=== PATIENT | male | born 1945 | race Caucasian/White ===

== ENCOUNTER 2021-05-21 10:31 | Inpatient (IN) | payer OTHER ==
[~2021-05-21] VITALS: Ht 175.3 cm; Wt 110.0 kg
[2021-05-21] MEDS ORDERED: ASPI81CH PO (10:54)
[2021-05-21] MEDS ORDERED: DULO60 PO (10:54)
[2021-05-21] MEDS ORDERED: CENTRUM SILVER1 EAC2 PO (10:55)
[2021-05-21] MEDS ORDERED: FISH OIL 1,0001 EAC8 PO (10:55)
[2021-05-21] MEDS ORDERED: METO25ER PO (10:55)
[2021-05-21] MEDS ORDERED: MYCOPHENOLATE500 MG PO (10:56)
[2021-05-21] MEDS ORDERED: Pyridostigmine60 MG PO (10:57)
[2021-05-21] MEDS ORDERED: PRAV20 PO (10:57)
[2021-05-21 10:58] LABS: BASOPHILS ABSOLUTE AUTO 0.02 K/mm3 (0.00-0.23); BASOPHILS PERCENT AUTO 0 % (0-2); EOSINOPHILS PERCENT AUTO 0 % (0-6); Hematocrit 45.7 % (37.0-53.0); Hemoglobin 15.6 g/dL (13.5-17.5); IMMATURE GRAN ABSOLUTE AUTO 0.13 K/mm3 (0.00-0.10); IMMATURE GRAN PERCENT AUTO 1 % (0-1); LYMPHOCYTES ABSOLUTE AUTO 1.48 K/mm3 (0.84-5.20); LYMPHOCYTES PERCENT AUTO 7 % (21-46); MONOCYTES ABSOLUTE AUTO 2.39 K/mm3 (0.16-1.47); MONOCYTES PERCENT AUTO 12 % (4-13); Mean Corpuscular HGB 31.6 pg (26.0-34.0); Mean Corpuscular HGB Conc 34.1 g/dL (31.5-36.5); Mean Corpuscular Volume 93 fL (80-100); Mean Platelet Volume 11.2 fL (9.1-12.4); NEUTROPHILS ABSOLUTE AUTO 16.01 K/mm3 (1.96-9.15); NEUTROPHILS PERCENT AUTO 80 % (41-73); Platelet Count 232 K/mm3 (150-400); RDW Coefficient Variation 13.6 % (11.7-14.2); RDW Standard Deviation 46.4 fL (35.1-46.3); Red Blood Cell Count 4.93 M/mm3 (4.30-5.90); White Blood Cell Count 20.03 K/mm3 (4.00-11.30)
[2021-05-21] MEDS ORDERED: SERT100 PO ×2 (10:58)
[2021-05-21] MEDS ORDERED: TAMS.4ER PO (10:58)
[2021-05-21 11:10] LABS: International Normalized Ratio 1.11; Prothrombin Time Results 11.9 Sec (9.7-11.5)
[2021-05-21 11:10] LABS: Calcium, Ionized (POC) 1.09 mmol/L (1.10-1.46); Chloride (POC) 103 mmol/L (98-108); Creatinine (POC) 1.1 mg/dL (0.8-1.3); Glucose (ISTAT POC) 149 mg/dL (70-99); Hemoglobin (POC) 15.6 g/dL (13.5-17.5); Potassium (POC) 4.3 mmol/L (3.5-5.5); Sodium (POC) 135 mmol/L (135-148); Total CO2 (POC) 21 mmol/L (21-32)
[2021-05-21 11:30] LABS: Alanine Aminotransfer (ALT/SGP 48 U/L (12-78); Albumin, Blood 3.4 g/dL (3.4-5.0); Albumin/Globulin Ratio 0.9 (0.8-1.8); Alk Phos 65 U/L (50-136); Anion Gap 9 mmol/L (6-16); Aspartate Aminotrans (AST/SGOT 29 U/L (12-37); Bilirubin, Total 2.2 mg/dL (0.1-1.0); Blood Urea Nitrogen 32 mg/dL (8-24); Bun/Creatinine Ratio 34.2 (12.0-20.0); CO2, Blood 21 mmol/L (21-32); Calcium, Blood 8.6 mg/dL (8.5-10.1); Chloride, Blood 105 mmol/L (98-108); Creatinine, Blood 0.94 mg/dL (0.60-1.20); Globulin, Blood 3.6 g/dL (2.2-4.0); Glomerular Filtration Rate >60 (60-); Glucose, Blood 154 mg/dL (70-99); Magnesium, Blood 2.1 mg/dL (1.6-2.4); Potassium, Blood 3.8 mmol/L (3.5-5.5); Sodium, Blood 135 mmol/L (136-145)
[2021-05-21 11:35] LABS: Troponin I 0.549 ng/mL (0.000-0.040)
[2021-05-21 12:42] LABS: SARS-Cov-2 (COVID-19) PCR, MMC NEGATIVE (NEGATIVE)
--- NOTE | 2021-05-21 19:32 | NUR ---
RECEIVED PT FROM ED ALERT AND ORIENTED, MAKING NO C/O SOB OR CHEST PAIN, SATS 92 AND ABOVE. MED REQ COMPLETE. REPORT GIVEN TO NIGHT NURSE.
--- NOTE | 2021-05-22 06:55 | NUR ---
SHIFT SUMMARY; ZULY DID WELL LAST NIGHT. TELE REPORTED SINUS WITH PROLONGED P WAVES. NO EVENTS. HE DENIED ANY PAIN OR DISCOMFORT. HEPRIN INCREASED ONCE, AND BOLUS WAS GIVEN. GOT HIS NIGHT MEDS ORDERED AND ADMINISTERED. TROPONIN WAS 0.549 YESTERDAY WITH NO REPEAT. BNP WAS 665 ALSO NO REPEAT. HOPES TO GO HOME TODAY. CALL LIGHT IN REACH.
[2021-05-22 08:31] LABS: Hematocrit 40.2 % (37.0-53.0); Hemoglobin 13.4 g/dL (13.5-17.5); Mean Corpuscular HGB 31.2 pg (26.0-34.0); Mean Corpuscular HGB Conc 33.3 g/dL (31.5-36.5); Mean Corpuscular Volume 94 fL (80-100); Mean Platelet Volume 10.7 fL (9.1-12.4); Platelet Count 184 K/mm3 (150-400); RDW Coefficient Variation 13.4 % (11.7-14.2); RDW Standard Deviation 45.6 fL (35.1-46.3); White Blood Cell Count 11.72 K/mm3 (4.00-11.30)
[2021-05-22 08:59] LABS: Alanine Aminotransfer (ALT/SGP 40 U/L (12-78); Albumin, Blood 2.8 g/dL (3.4-5.0); Albumin/Globulin Ratio 0.9 (0.8-1.8); Alk Phos 56 U/L (50-136); Anion Gap 9 mmol/L (6-16); Aspartate Aminotrans (AST/SGOT 27 U/L (12-37); Bilirubin, Total 2.1 mg/dL (0.1-1.0); Blood Urea Nitrogen 22 mg/dL (8-24); Bun/Creatinine Ratio 29.3 (12.0-20.0); CHOL/HDL RATIO 3.1; CO2, Blood 23 mmol/L (21-32); Chloride, Blood 109 mmol/L (98-108); Cholesterol 126 mg/dL (50-200); Creatinine, Blood 0.75 mg/dL (0.60-1.20); Globulin, Blood 3.2 g/dL (2.2-4.0); Glomerular Filtration Rate >60 (60-); Glucose, Blood 81 mg/dL (70-99); HDL Cholesterol 41 mg/dL (>39); LDL/HDL RATIO 1.6; Low Density Lipoprotein Chol 65 mg/dL (0-110); Potassium, Blood 3.3 mmol/L (3.5-5.5); Sodium, Blood 141 mmol/L (136-145); Triglycerides 101 mg/dL (30-160); Very Low Density Lipoprot Chol 20 mg/dL (6-32)
[2021-05-22 09:03] LABS: Troponin I 0.843 ng/mL (0.000-0.040)
--- NOTE | 2021-05-22 19:23 | NUR ---
SUMM- PT A/O X4. TOLERATING FOOD AND FLUIDS. PLAN FOR ANGIO AM 05/23 0730, NPO AFTER MIDNIGHT. VSS, DENIES CHEST PAIN. SR 90'S. HEPARIN GTT. USES CALL LIGHT. SBA IN ROOM. USES URINAL
--- NOTE | 2021-05-23 05:38 | NUR ---
SHIFT SUMMARY: NO ACUTE CHANGES OVER NIGHT. HE HAS DEVELOPED SOME MILD DIARRHEA, AND IS INCONTIENT OF URINE AT TIMES. HEPARIN CONTINUES TO INFUSE WITH NO CHANGES TO HE INFUSION. TELE REPORTS SINUS, NO EVENTS. VS HAVE BEEN STABLE. NPO AFTER MIDNIGHT EXCEPT FOR MEDS AND SIPS OF WATER. PLAN ANGIOGRAM THIS AM. WILL CONTINUE TO MONITOR. CALL LIGHT IN REACH.
--- NOTE | 2021-05-23 09:00 | NUR ---
PT RETURNED TO RECOVERY ROOM IN BED. RIGHT RADIAL TR BAND SITE WITH WRIST BOARD IN PLACE SOFT WITH NO HEMATOMA, NO PULSATILE BLEEDING AND SP02 ON RIGHT MIDDLE FINGER. PT DENIES CHEST PAIN. PT HAS SOME "ACHINESS" IN RIGHT WRIST. CALL LIGHT IN REACH. PT DRINKING PEPSI.
--- NOTE | 2021-05-23 09:40 | NUR ---
PT UPPER LUNG TONES WHEEZES. DR ALTMAN IN ROOM. [facility] SEE NEW ORDERS FOR UPDRAFT TREATMENT. NO CHANGES TO RIGHT RADIAL TR BAND SITE.
--- NOTE | 2021-05-23 09:58 | NUR ---
NO LONGER HEAR WHEEZING IN UPPER LOBES. PT EATING BREAKFAST.
--- NOTE | 2021-05-23 11:01 | NUR ---
15 CC OF AIR REMOVED OVER 15 MIN OUT OF NOW DEFLATED RIGHT RADIAL TR BAND. RIGHT RADIAL SITE SOFT WITH NO HEMATOMA, NO PULSATILE BLEEDING. RADIAL SITE DISCHARGE INSTRUCTIONS REVIEWED AND ALL QUESTIONS ANSWERED.
--- NOTE | 2021-05-23 11:15 | NUR ---
NO CHANGES TO DEFLATED RIGHT TR BAND SITE.
--- NOTE | 2021-05-23 11:28 | NUR ---
NO CHANGES TO DEFLATED RIGHT TR BAND SITE
--- NOTE | 2021-05-23 11:37 | NUR ---
NO CHANGES TO DEFLATED RIGHT TR BAND SITE.
--- NOTE | 2021-05-23 12:00 | NUR ---
RIGHT RADIAL TR BAND REMOVED AND POLYMEM PLACED OVER RIGHT RADIAL SITE WITH RIGHT WRIST BOARD IN PLACE. RIGHT RAIAL SITE SOFT WITH NO HEMATOMA, NO PULSATILE BLEEDING.
[2021-05-23 14:22] LABS: Hematocrit 44.8 % (37.0-53.0); Hemoglobin 15.5 g/dL (13.5-17.5); Mean Corpuscular HGB 31.8 pg (26.0-34.0); Mean Corpuscular HGB Conc 34.6 g/dL (31.5-36.5); Mean Corpuscular Volume 92 fL (80-100); Mean Platelet Volume 10.7 fL (9.1-12.4); Platelet Count 230 K/mm3 (150-400); RDW Coefficient Variation 13.2 % (11.7-14.2); RDW Standard Deviation 43.8 fL (35.1-46.3); Red Blood Cell Count 4.87 M/mm3 (4.30-5.90); White Blood Cell Count 14.02 K/mm3 (4.00-11.30)
[2021-05-23 14:43] LABS: Anion Gap 8 mmol/L (6-16); Blood Urea Nitrogen 17 mg/dL (8-24); CO2, Blood 23 mmol/L (21-32); Calcium, Blood 8.1 mg/dL (8.5-10.1); Chloride, Blood 109 mmol/L (98-108); Creatinine, Blood 0.77 mg/dL (0.60-1.20); Glomerular Filtration Rate >60 (60-); Glucose, Blood 101 mg/dL (70-99); Sodium, Blood 140 mmol/L (136-145)
--- NOTE | 2021-05-23 20:32 | NUR ---
SUMMARY- PT WENT FOR ANGIO THIS AM AND ENDED UP HAVING A STENT PLACED. ENTERED R RADIAL, DRESSING INTACT WITH SPLINT IN PLACE TO REMIND PT TO KEEP FROM MOVING WRIST OF USING MORE THAN MINIMALLY. ISABELA RENE REPORTED THAT PT BECAME SOB AFTER BRILANTA AND THAT HE SHOULDNT BE GIVEN THAT DRUG AGAIN. PT RECEIVED BACK FROM ANGIO AT 1230 AND VSS, PT SLIGHTLY WEAK AND SLEEPY BUT APPROPRIATE. 2 SBA TO CHAIR. PT WANTED TO GO TO BED IMMEDIATELY. PT WAS RESTLESS THE ENTIRE SHIFT, SITTING AT THE EDGE OF BED AND C/O FEELING EDGEY. HAD ALWAYS DENIED CP. FELT LIGHT HEADED AT ONE POINT WHEN SITTING, VSS REMAINED STABLE WITH TEMP OF 101. WILL ELHAM. SET BED ALARM BECAUSE PT BEGAN TO GET UP WITH OUT ASSIST AND WOULDNT WAIT FOR ASSIST. PT USED CALL LIGHT FREQ FOR SMALL REQ OR NOTHING AT ALL. TOWARD END OF SHIFT SETTELING DOWN. STATES HE FEELS TERRIBLE SINCE THE MED GIVEN TO HIM EARLIER. REPORTED TO NOC
[2021-05-24 04:31] LABS: BASOPHILS ABSOLUTE AUTO 0.03 K/mm3 (0.00-0.23); BASOPHILS PERCENT AUTO 0 % (0-2); EOSINOPHILS ABSOLUTE AUTO 0.01 K/mm3 (0.00-0.68); EOSINOPHILS PERCENT AUTO 0 % (0-6); Hematocrit 45.2 % (37.0-53.0); Hemoglobin 15.7 g/dL (13.5-17.5); IMMATURE GRAN ABSOLUTE AUTO 0.11 K/mm3 (0.00-0.10); IMMATURE GRAN PERCENT AUTO 1 % (0-1); LYMPHOCYTES PERCENT AUTO 5 % (21-46); MONOCYTES ABSOLUTE AUTO 2.16 K/mm3 (0.16-1.47); MONOCYTES PERCENT AUTO 12 % (4-13); Mean Corpuscular HGB 31.8 pg (26.0-34.0); Mean Corpuscular HGB Conc 34.7 g/dL (31.5-36.5); Mean Corpuscular Volume 92 fL (80-100); NEUTROPHILS ABSOLUTE AUTO 14.27 K/mm3 (1.96-9.15); NEUTROPHILS PERCENT AUTO 82 % (41-73); RDW Coefficient Variation 13.2 % (11.7-14.2); RDW Standard Deviation 43.3 fL (35.1-46.3); Red Blood Cell Count 4.93 M/mm3 (4.30-5.90); White Blood Cell Count 17.48 K/mm3 (4.00-11.30)
[2021-05-24 04:42] LABS: Mean Platelet Volume 10.9 fL (9.1-12.4); Platelet Count 209 K/mm3 (150-400)
[2021-05-24 05:04] LABS: Alanine Aminotransfer (ALT/SGP 35 U/L (12-78); Albumin, Blood 2.9 g/dL (3.4-5.0); Albumin/Globulin Ratio 0.8 (0.8-1.8); Alk Phos 60 U/L (50-136); Anion Gap 8 mmol/L (6-16); Aspartate Aminotrans (AST/SGOT 27 U/L (12-37); Bilirubin, Total 2.8 mg/dL (0.1-1.0); Blood Urea Nitrogen 13 mg/dL (8-24); Bun/Creatinine Ratio 19.6 (12.0-20.0); CO2, Blood 21 mmol/L (21-32); Calcium, Blood 8.2 mg/dL (8.5-10.1); Chloride, Blood 108 mmol/L (98-108); Creatinine, Blood 0.66 mg/dL (0.60-1.20); Globulin, Blood 3.8 g/dL (2.2-4.0); Glomerular Filtration Rate >60 (60-); Glucose, Blood 105 mg/dL (70-99); Potassium, Blood 3.2 mmol/L (3.5-5.5); Sodium, Blood 137 mmol/L (136-145); Total Protein, Blood 6.7 g/dL (6.4-8.2)
--- NOTE | 2021-05-24 06:23 | NUR ---
ARRIVAL TO PCU PT ARRIVED TO PCU AT 06:10 VIA GURNEY. PT STANDS AND TRANSFERS TO OUR GURNEY WITH MINIMAL ASSIST. PT CONCERNED ABOUT COMING IN TO VISIT. MEDICAL FLOOR RN STS SHE WILL CALL SPOUSE AND UPDATE HER ON HIS LOCATION IN THE HOSPITAL. AFTER SITTING ON EDGE OF BED PT REMAINS RESTLESS, MOVING BETWEEN LAYING ON BED AND SITTING AT THE EDGE. PT DENIES CP OR DIZZINESS. OFFERED FOR PT TO MOVE TO CHAIR TO WHICH HE TRANSFERS WITH MINIMAL ASSIST. PT ASKS SEVERAL TIMES ABOUT CATHETER, INFORMED IT DRAINS URINE WITHOUT EFFORT. LUNG SOUNDS ARE COARSE IN UPPER LOBES, DIMINISHED AND COARSE. MONITOR SHOWS PT IN SINUS RHYTHM WITH HR IN 80S. SBP IN 150S. SPO2 IN MID 80S. APPLIED 3L VIA NC AND SPO2 >96%. RR FLUCTUATES BETWEEN 30S-50S. STRONG RADIAL AND PEDAL PULSES BILATERALLY. BOWEL TONES ACTIVE X4 QUADRANTS. PT REQUESTS TO SIT ON BEDSIDE COMMODE D/T DIARRHEA. SITS ON COMMODE FOR SEVERAL MINUTES WITHOUT BM . ASKS ABOUT "RITCHIE" AND POINTS TO THE FLOOR, TALKS ABOUT "TUNDE WALKER". WHEN ASKED WHO TUNDE WALKER IS, PT STS "I DON'T KNOW". PT BACK TO SITTING IN CHAIR. PT APPEARS MORE CALM AND DROWSY. LOOKING AROUND ROOM AND WATCHING TV.
--- NOTE | 2021-05-24 08:12 | NUR ---
SHIFT SUMMARY: PATIENT HAD A VERY ROUGH NIGHT, STARTING OFF WITH FREQUENT SEVERE PANIC ATTACKS THAT MADE HIM FEEL LIKE HE HAD TO MOVE AND LEAN IN A TRIPOD POSITION. CONTINTINUED TO STATE HE COULD NOT BREATH WHEN HE LAID BACK EVEN IN THE CHAIR. STATES IT FELT LIKE "HIS HEART BEING CRUSHED". CONTINUED TO STATES HE WAS ANXIOUS AND ALL HE WANTED TO DO WAS SLEEP. RESPIRATION WOULD INCREASE TO 40'S AND HIGHER WHEN THE PANIC ATTACKS OCCURED. TRIED RECLEINER, PILLOWS, SITTING IN YOUNG, WALKING, AND FAMILY BED. NOTHING HELPED. MD WAS NOTIFIED ORDER FOR BENADRYL THE REPORT WAS HE HAD A REACTION TO BILENTA TODAY DURING THE RECOVER OF HIS STENT. SINCE THEN HE HAS HAD THESE PANIC ATTACKS. ATTACKS PROGRESSED TO HULLUUCINATIONS, UNSTADFY GAIT, SEVERE WEAKNESS FATIQUED, AND PARNOIA. THOUGHT HIS WAS IN THE HOSPITAL. CONTINUED TO WANT TO LEAVE. MD ORDERED HALDOL EVEN THOUGH HE HAD PROLONGED QT WAVE. THIS MADE THE SITUATION WORSE HE WAS FIGHING THE MEDICATION. CONTINUED TO BE CONCERN RESPIRATIONS WERE HIGH, HE WAS PALE. EKG DONE, IMPROVEMENT FROM LAST ONE. ASKED HOSPITALIZED BRITTANIE TO COME ASSESS. NEW ORDERS OBTAINED. AT THIS POINT AGGITATION AND CONFUSION PERSISTED, WAS UNABLE TO LEAVE THE PATIENTS ALONE. CONTINUED TO REPORT CHEST PRESSURE. CHEST EXRAY SHOWED PULMONARY EDEMA, D-DIMER SUGGEST PE, RESPIRATIONS WERE NOT AVERAGING 40-60. LUNGS WERE VERY CRACKLING. HE WAS GIVEN MELATONIN, ATIVAN TO TRY AND GET HIM TO CALM DOWN. CATHETER WAS PLACED, LASIX GIVEN. ORDER FOR CPAP AND PCU TRANSFER. GAVE REPORT, PATIENT TRANSFERRED. CALLED AND INFORMED OF SITUATION.
--- NOTE | 2021-05-24 09:40 | NUR ---
CARE ASSUMPTION PATIENT ALERT AND ORIENTATED X4. VSS. SPO2 >90% ON NC 3L, RESPIRATIONS FLUCUATES FROM 20-34. MD ALTMAN IN TO SEE PATIENT AT APROX 0735 DUE TO THE EVENTS STATED IN PERVIOUS NOTE. WHILE MD ALTMAN WAS IN THERE HE REMOVEED THE ARM BOARD AND CITE WAS WITHIN NORMAL LIMITS, NO REDDNESS, SWELLING, OR BLEEDING. PATIENT IS NOT HAVING ANY HALLUCINATIONS. PATIENT STARTED TO BECOME ANXIOUS AND STATED HE WANTED TO LEAVE. THIS RN, MARCK, AND FRANKLIN HAD THE PATIENT CALL HIS AND EDUCATED ON HIM WHY IT IS NOT SAFE FOR HIM TO LEAVE SINCE HE HAS FLUID ON HIS LUNGS, RESPIRATIONS ARE NOT NORMAL, AND THE MD WANTS TO HAVE HIM HERE ONE MORE NIGHT TO HELP GET THE FLUID OFF. PATIENT AGREED TO STAY UNTIL TOMORROW MORNING. WAS CALLED WITH AN UPDATE. PATIENT RELAXING IN CHAIR AT BEDSIDE WITH TAB ALARM ON. PATIENT DID NOT WANT TO EAT BREAKFAST. LORENZANA DRAINING WITH GRAVITY, TEACOLOR. CALL LIGHT WITHIN REACH. WILL CONTINUE TO MONITOR AND PROVIDE CARE.
--- NOTE | 2021-05-24 18:14 | NUR ---
SHIFT SUMMARY PATIENT ALERT AND ORIENTATED X4. VSS. SPO2 >90% ON NC 3L. TELE SR 83. PATIENT REPORTS NO PAIN, CHEST PAIN, OR SHORTNESS OF BREATH. PATIENT IS SITTING IN CHAIR AT BEDSIDE. TAB ALARM IS ON. PATIENT ATE A SMALL PORTION OF HIS DINNER. LORENZANA IS IN PLACE DRAINING WITH GRAVITY, TEA COLORED. NO ACUTE CHANGES DURING THIS SHIFT. CALL LIGHT WITHIN REACH. WILL CONTINUE TO MONITOR AND PROVIDE CARE UNTIL HAND OFF WITH DAY SHIFT.
[2021-05-25 04:45] LABS: BASOPHILS ABSOLUTE AUTO 0.03 K/mm3 (0.00-0.23); BASOPHILS PERCENT AUTO 0 % (0-2); EOSINOPHILS PERCENT AUTO 0 % (0-6); Hemoglobin 14.5 g/dL (13.5-17.5); IMMATURE GRAN ABSOLUTE AUTO 0.09 K/mm3 (0.00-0.10); IMMATURE GRAN PERCENT AUTO 1 % (0-1); LYMPHOCYTES ABSOLUTE AUTO 1.03 K/mm3 (0.84-5.20); LYMPHOCYTES PERCENT AUTO 7 % (21-46); MONOCYTES ABSOLUTE AUTO 1.64 K/mm3 (0.16-1.47); MONOCYTES PERCENT AUTO 10 % (4-13); Mean Corpuscular HGB 31.5 pg (26.0-34.0); Mean Corpuscular HGB Conc 33.7 g/dL (31.5-36.5); Mean Corpuscular Volume 93 fL (80-100); Mean Platelet Volume 10.9 fL (9.1-12.4); NEUTROPHILS ABSOLUTE AUTO 13.12 K/mm3 (1.96-9.15); NEUTROPHILS PERCENT AUTO 82 % (41-73); Platelet Count 227 K/mm3 (150-400); RDW Coefficient Variation 13.5 % (11.7-14.2); RDW Standard Deviation 45.8 fL (35.1-46.3); Red Blood Cell Count 4.61 M/mm3 (4.30-5.90); White Blood Cell Count 15.91 K/mm3 (4.00-11.30)
[2021-05-25 05:09] LABS: Albumin, Blood 2.6 g/dL (3.4-5.0); Anion Gap 8 mmol/L (6-16); Blood Urea Nitrogen 20 mg/dL (8-24); Bun/Creatinine Ratio 26.6 (12.0-20.0); CO2, Blood 26 mmol/L (21-32); Calcium, Blood 8.4 mg/dL (8.5-10.1); Chloride, Blood 104 mmol/L (98-108); Creatinine, Blood 0.75 mg/dL (0.60-1.20); Glomerular Filtration Rate >60 (60-); Glucose, Blood 117 mg/dL (70-99); Magnesium, Blood 2.1 mg/dL (1.6-2.4); Potassium, Blood 3.1 mmol/L (3.5-5.5); Sodium, Blood 138 mmol/L (136-145)
--- NOTE | 2021-05-25 05:13 | NUR ---
SHIFT SUMMARY NO ACUTE CHANGES THIS SHIFT, NO C/O ANY KIND, A&O, COOPERATIVE W/CARE, SLEPT T/O THE NIGHT & SLEEPING AT THIS TIME, VSS, MAINTAINS O2 +90% ON 3L O2, CALL LIGHT IN REACH, BED ALARM ACTIVE, WILL CONT TO MONITOR UNTIL REPORT GIVEN TO DAY RN.
--- NOTE | 2021-05-25 10:22 | NUR ---
CARE ASSUMPTION PATIENT IS ALERT AND ORIENTATED X4. VSS. SPO2 >90% ON 3L NC. TELE SR 70-80S. MD Jagdish LACKEY AND MD ALTMAN INTO SEE PATIENT THIS MORNING. MD Jagdish LACKEY PUT IN A HOME O2 EVAL BEFORE HAVING PATIENT BEING DISCHARGE. BOTH MD AGREED PATIENT CAN BE SAFETLY DISCHARGED TODAY AFTER HOME O2 EVAL. PATIENT DENIES CHEST PAIN OR SHORTNESS OF BREATH. CALL LIGHT WITHIN REACH. WILL CONTINUE TO MONITOR AND PROVIDE CARE.
[2021-05-25] MEDS ORDERED: AMIODARONE HCL400 M2 PO (15:20)
[2021-05-25] MEDS ORDERED: CLOP75 PO (15:21)
[2021-05-25] MEDS ORDERED: AMOCLA500 PO (15:21)
[2021-05-25] MEDS ORDERED: POTCHL20ER PO (15:22)
[2021-05-25] MEDS ORDERED: FURO40 PO (15:22)
[2021-05-25] MEDS ORDERED: FAMO20 PO (15:22)
[2021-05-25] MEDS ORDERED: BACID WITH LAC PO (15:23)
--- NOTE | 2021-05-25 15:45 | NUR ---
PATIENT DISCHAGRE PATIENT DISCHAGRED AT 1535. THIS RN WENT OVER DISCHARGE INFOMRATION, NEW MEDICATIONS, O2 THERAPY, AND TO FOLLOW UP WITH PROVIDERS.
== END 2021-05-25 15:48 | disposition home or self-care (01) | DRG 246 ==
LOC: ER 10:31 → ERHOLD 13:24 → MEDS 13:24 → PCU 05-24 06:05
PROVIDERS: Emergency Medicine; Internal Medicine; ADMIT Internal Medicine
PROC: 027034Z Dilation of Coronary Artery, One Artery with Drug-eluting Intraluminal Device, Percutaneous Approach (ICD-10-PCS; principal; 2021-05-23)
PROC: 4A023N7 Measurement of Cardiac Sampling and Pressure, Left Heart, Percutaneous Approach (ICD-10-PCS; 2021-05-23)
PROC: B2111ZZ Fluoroscopy of Multiple Coronary Arteries using Low Osmolar Contrast (ICD-10-PCS; 2021-05-23)
DX: I21.4 Non-ST elevation (NSTEMI) myocardial infarction (principal); J18.9 Pneumonia, unspecified organism; J96.90 Respiratory failure, unspecified, unspecified whether with hypoxia or hypercapnia; I47.2 Ventricular tachycardia; I50.32 Chronic diastolic (congestive) heart failure; T82.858A Stenosis of other vascular prosthetic devices, implants and grafts, initial encounter; Z20.822 Contact with and (suspected) exposure to COVID-19; E87.6 Hypokalemia; E78.5 Hyperlipidemia, unspecified; G70.00 Myasthenia gravis without (acute) exacerbation; I25.10 Atherosclerotic heart disease of native coronary artery without angina pectoris; F32.9 Major depressive disorder, single episode, unspecified; N40.0 Benign prostatic hyperplasia without lower urinary tract symptoms; I11.0 Hypertensive heart disease with heart failure; Z88.6 Allergy status to analgesic agent; Z79.82 Long term (current) use of aspirin; Z79.899 Other long term (current) drug therapy; Z87.891 Personal history of nicotine dependence; Y71.2 Prosthetic and other implants, materials and accessory cardiovascular devices associated with adverse incidents
CPT/HCPCS: 36415; 71045; 76937; 80047; 80048; 80053; 80061; 80069; 83735; 83880; 84145; 84443; 84484; 85014; 85025; 85027; 85347; 85379; 85610; 85730; 92960; 93005; 93010; 93306; 93454; 96365-59; 96366-59; 96375-59; 99152; 99153; 99285-25; A9270; C1725; C1769; C1874; C1887; C1894; C9600; J0153; J0282; J1200; J1630; J1644; J1940; J2060; J2250; J3010; J3480; J7030; J7050; J7517; Q9967; U0004

== ENCOUNTER 2021-05-30 19:19 | Inpatient (IN) | payer OTHER ==
[~2021-05-30] VITALS: Ht 175.3 cm; Wt 103.0 kg
[~2021-05-30 19:19] MED LIST: AMIODARONE HCL400 M2 PO; AMOCLA500 PO; ASPI81CH PO; BACID WITH LAC PO; CENTRUM SILVER1 EAC2 PO; CLOP75 PO; DULO60 PO; FAMO20 PO; FISH OIL 1,0001 EAC8 PO; FURO40 PO; METO25ER PO; MYCOPHENOLATE500 MG PO; POTCHL20ER PO; PRAV20 PO; Pyridostigmine60 MG PO; SERT100 PO; TAMS.4ER PO
[2021-05-30 20:38] LABS: BASOPHILS ABSOLUTE AUTO 0.02 K/mm3 (0.00-0.23); BASOPHILS PERCENT AUTO 0 % (0-2); EOSINOPHILS PERCENT AUTO 0 % (0-6); Hematocrit 47.5 % (37.0-53.0); Hemoglobin 16.5 g/dL (13.5-17.5); IMMATURE GRAN ABSOLUTE AUTO 0.06 K/mm3 (0.00-0.10); IMMATURE GRAN PERCENT AUTO 1 % (0-1); LYMPHOCYTES ABSOLUTE AUTO 0.45 K/mm3 (0.84-5.20); LYMPHOCYTES PERCENT AUTO 5 % (21-46); MONOCYTES ABSOLUTE AUTO 0.39 K/mm3 (0.16-1.47); MONOCYTES PERCENT AUTO 5 % (4-13); Mean Corpuscular HGB 30.9 pg (26.0-34.0); Mean Corpuscular HGB Conc 34.7 g/dL (31.5-36.5); Mean Corpuscular Volume 89 fL (80-100); Mean Platelet Volume 10.4 fL (9.1-12.4); NEUTROPHILS ABSOLUTE AUTO 7.49 K/mm3 (1.96-9.15); NEUTROPHILS PERCENT AUTO 89 % (41-73); Platelet Count 336 K/mm3 (150-400); RDW Coefficient Variation 13.1 % (11.7-14.2); RDW Standard Deviation 42.7 fL (35.1-46.3); Red Blood Cell Count 5.34 M/mm3 (4.30-5.90); White Blood Cell Count 8.41 K/mm3 (4.00-11.30)
[2021-05-30 20:52] LABS: Alanine Aminotransfer (ALT/SGP 83 U/L (12-78); Albumin, Blood 2.4 g/dL (3.4-5.0); Albumin/Globulin Ratio 0.6 (0.8-1.8); Alk Phos 72 U/L (50-136); Anion Gap 10 mmol/L (6-16); Aspartate Aminotrans (AST/SGOT 115 U/L (12-37); Bilirubin, Total 0.8 mg/dL (0.1-1.0); Blood Urea Nitrogen 10 mg/dL (8-24); Bun/Creatinine Ratio 13.8 (12.0-20.0); CO2, Blood 26 mmol/L (21-32); Calcium, Blood 8.1 mg/dL (8.5-10.1); Chloride, Blood 98 mmol/L (98-108); Creatinine, Blood 0.72 mg/dL (0.60-1.20); Globulin, Blood 4.2 g/dL (2.2-4.0); Glomerular Filtration Rate >60 (60-); Glucose, Blood 86 mg/dL (70-99); Sodium, Blood 134 mmol/L (136-145); Total Protein, Blood 6.6 g/dL (6.4-8.2); Troponin I 0.055 ng/mL (0.000-0.040)
[2021-05-31 00:22] LABS: PCO2 Arterial 37.1 mmHg (35-45); PO2 Arterial 61.4 mmHg (80-100); pH Blood Arterial 7.48 (7.35-7.45)
--- NOTE | 2021-05-31 02:54 | NUR ---
PATIENT IS ALERT AND ORIENTATED ADMITTED FROM ER AT 0130 TONIGHT, 20 GAUGE IN THE RAC, REDRESSED AND SECURED. TRIED TO INSERT ANOTHER IV X 2 UNSUCCESSFUL, WAITING FOR POTASSIUM IV TO COMPLETE TO START ZITHROMYCIN IV. PATIENT USES A FRONT WHEEL WALKER AT HOME BASELINE, AND 3 LITERS OF OXYGEN, CURRENTY PATIENT IS ON 10L OXYIMIZER SATURATIONS 91-93%, SINUS RHTHYM AT 64, NO COMPLAINTS OF PAIN, LUNG SOUNDS FINE CRACKLES AND INSPIRATORY WHEEZING THROUGHOUT WITH PRODUCTIVE COUGH, SOME NOTED BRUISING THROUGHOUT EXTREMITIES, PATIENT RIGHT HAND HAD BLACK COBAIN STATED HE FELL IN ED AND GOT A SKIN TEAR NO REPORT GIVEN ON ANY INCIDENT TO ME BY SU ED RN. REDNESS NOTED ON POSTERIOR BACK BLANCHABLE, SKIN IS WARM AND CLAMMY. PATIENT HAS REQUESTED TO GET SOME SLEEP AND IS RESTING IN BED.
[2021-05-31 03:41] LABS: BASOPHILS ABSOLUTE AUTO 0.01 K/mm3 (0.00-0.23); BASOPHILS PERCENT AUTO 0 % (0-2); EOSINOPHILS PERCENT AUTO 0 % (0-6); Hematocrit 43.1 % (37.0-53.0); Hemoglobin 15.2 g/dL (13.5-17.5); IMMATURE GRAN ABSOLUTE AUTO 0.04 K/mm3 (0.00-0.10); IMMATURE GRAN PERCENT AUTO 1 % (0-1); LYMPHOCYTES ABSOLUTE AUTO 0.42 K/mm3 (0.84-5.20); LYMPHOCYTES PERCENT AUTO 6 % (21-46); MONOCYTES PERCENT AUTO 4 % (4-13); Mean Corpuscular HGB 31.7 pg (26.0-34.0); Mean Corpuscular HGB Conc 35.3 g/dL (31.5-36.5); Mean Corpuscular Volume 90 fL (80-100); Mean Platelet Volume 10.3 fL (9.1-12.4); NEUTROPHILS ABSOLUTE AUTO 6.59 K/mm3 (1.96-9.15); NEUTROPHILS PERCENT AUTO 90 % (41-73); Platelet Count 276 K/mm3 (150-400); RDW Coefficient Variation 13.1 % (11.7-14.2); White Blood Cell Count 7.36 K/mm3 (4.00-11.30)
[2021-05-31 04:00] LABS: Alanine Aminotransfer (ALT/SGP 67 U/L (12-78); Albumin/Globulin Ratio 0.5 (0.8-1.8); Alk Phos 63 U/L (50-136); Anion Gap 8 mmol/L (6-16); Aspartate Aminotrans (AST/SGOT 88 U/L (12-37); Bilirubin, Direct 0.2 mg/dL (0.0-0.3); Bilirubin, Indirect 0.3 mg/dL (0.1-0.7); Bilirubin, Total 0.5 mg/dL (0.1-1.0); Blood Urea Nitrogen 11 mg/dL (8-24); Bun/Creatinine Ratio 19.5 (12.0-20.0); CO2, Blood 27 mmol/L (21-32); Chloride, Blood 102 mmol/L (98-108); Creatinine, Blood 0.57 mg/dL (0.60-1.20); Globulin, Blood 3.8 g/dL (2.2-4.0); Glomerular Filtration Rate >60 (60-); Glucose, Blood 115 mg/dL (70-99); Potassium, Blood 3.2 mmol/L (3.5-5.5); Sodium, Blood 137 mmol/L (136-145); Total Protein, Blood 5.8 g/dL (6.4-8.2); Troponin I 0.046 ng/mL (0.000-0.040)
--- NOTE | 2021-05-31 09:21 | NUR ---
[place] of Care Pt is a/o x 4 with no complaints this morning. He has a dry sense of humor. He did refuse some of his morning medications which is reflected on the emar and discussed with Dr Medellin. He was on high flow oxymizer this morning at 12 lpm at his sats were in the 90's. The RT has since changed him over to a non-rebreather at 15 LPM due to him desaturating and he is currently @ 94%. He is able to make his needs known and calls for help when needed.
--- NOTE | 2021-05-31 16:16 | NUR ---
Shift Summary Pt is a/o x 4 with no c/o pain. He has been very pleasant and cooperative with his care. This morning we reviewed his meds that were ordered at length and he refused some of them until the doses could be confirmed with his . His brought in a box of his home meds and they were all reconciled with the pharmacy and DR Medellin. A power glide was started in his right upper arm and quickly became occluded and was removed. A new powerglide was started in the left upper arm and is flushing and drawing beautifully at the moment. His sputum culture was sent to the lab as ordered. The pt has a semi decent appetite and likes to drink diet pepsi over water. He uses the urinal. He was assisted up to the bedside commode for a bowel movement and has loose stool x [address] is aware of. He is able to make his needs known and has been using his call light as needed.
--- NOTE | 2021-05-31 23:14 | NUR ---
PATIENT IS NOW REQUIRING NRB 15L AND HFNC 60L FIO2 93%, RESPIRATORY IS AWARE, PRONING EDUCATION HAS BEEN GIVEN TO PATIENT.
--- NOTE | 2021-06-01 01:54 | NUR ---
PATIENT IS NOW DEPENDENT ON BIPAP FIO2 100% 14/05, PATIENT IS UNABLE TO TOLERATE BEING ON THE AIRVO WITHOUT NON-REBREATHER SET AT 15L, MAY NEED TO CONSIDER BEING NPO, PATIENT IS PRONING AND REINFORCE TURNING. CURRENTLY MORE COMFORTABLE AND SATURATIONS AT 92%.
--- NOTE | 2021-06-01 03:28 | NUR ---
PATIENT HAVING DIFFICULTY BEING COMPLIANT WITH KEEPING HIS MASK ON FOR THE CPAP, NEEDING CONSTANT REMINDING, " I DONT CARE I'M NOT GONNA KEEP THIS MASK ON ALL THE TIME". RE-EDUCATION WAS PROVIDED TO PATIENT.
[2021-06-01 05:12] LABS: BASOPHILS ABSOLUTE AUTO 0.02 K/mm3 (0.00-0.23); BASOPHILS PERCENT AUTO 0 % (0-2); EOSINOPHILS PERCENT AUTO 0 % (0-6); Hematocrit 45.8 % (37.0-53.0); Hemoglobin 15.4 g/dL (13.5-17.5); IMMATURE GRAN PERCENT AUTO 1 % (0-1); LYMPHOCYTES ABSOLUTE AUTO 0.94 K/mm3 (0.84-5.20); LYMPHOCYTES PERCENT AUTO 6 % (21-46); MONOCYTES ABSOLUTE AUTO 0.58 K/mm3 (0.16-1.47); MONOCYTES PERCENT AUTO 4 % (4-13); Mean Corpuscular HGB Conc 33.6 g/dL (31.5-36.5); Mean Corpuscular Volume 92 fL (80-100); Mean Platelet Volume 10.4 fL (9.1-12.4); NEUTROPHILS PERCENT AUTO 90 % (41-73); Platelet Count 360 K/mm3 (150-400); RDW Coefficient Variation 13.3 % (11.7-14.2); RDW Standard Deviation 45.2 fL (35.1-46.3); Red Blood Cell Count 4.96 M/mm3 (4.30-5.90); White Blood Cell Count 15.94 K/mm3 (4.00-11.30)
[2021-06-01 05:46] LABS: Alanine Aminotransfer (ALT/SGP 71 U/L (12-78); Albumin, Blood 2.1 g/dL (3.4-5.0); Albumin/Globulin Ratio 0.7 (0.8-1.8); Alk Phos 64 U/L (50-136); Anion Gap 9 mmol/L (6-16); Aspartate Aminotrans (AST/SGOT 99 U/L (12-37); Bilirubin, Total 0.5 mg/dL (0.1-1.0); Blood Urea Nitrogen 20 mg/dL (8-24); Bun/Creatinine Ratio 28.5 (12.0-20.0); CO2, Blood 26 mmol/L (21-32); Calcium, Blood 7.6 mg/dL (8.5-10.1); Chloride, Blood 104 mmol/L (98-108); Globulin, Blood 3.1 g/dL (2.2-4.0); Glomerular Filtration Rate >60 (60-); Glucose, Blood 116 mg/dL (70-99); Potassium, Blood 3.7 mmol/L (3.5-5.5); Sodium, Blood 139 mmol/L (136-145); Total Protein, Blood 5.2 g/dL (6.4-8.2)
--- NOTE | 2021-06-01 09:05 | NUR ---
[place] of Care Pt is a/o x 4 and in a gruff mood this morning. Per report his was diagnosed with COVID last night and the pt is visibly upset this morning. His o2 needs increased over night. RT switched him over to the AIRVO this morning so that he can eat and take his morning meds. Currently he is maintaining @ 92% but he frequently dips down into the 80's.The powerglide in his left arm is not clotted off. Luckily he has a peripheral access that his morning ABO are infusing into. He is able to make his needs known and calls for help when needed.
--- NOTE | 2021-06-01 13:39 | NUR ---
Update Pt is back on the CPAP @ 90%. He was not able to tolerate being on the AIRVO during breakfast this morning. The clinical coordinator placed a jimenez and a rectal tube this morning since he was having loose stool and not able to maintain is o2 to void. His powerglide clotted off and Dr Medellin ordered a PICC placement and we are awaiting a PICC nurse. The Doctor called his and updated her.
--- NOTE | 2021-06-01 16:01 | NUR ---
Shift Summary Pt remains a/o x 4 with no c/o pain. He is still awaiting PICC placement. His jimenez is patent and so is his rectal tube. He remains on the CPAP with o2 sats in the low 90's. Dr Medellin made some changes to his meds as reflected on his EMAR. Pt has his call phone and call light in reach and he is able to make his needs known.
[2021-06-02 04:24] LABS: BASOPHILS ABSOLUTE AUTO 0.01 K/mm3 (0.00-0.23); BASOPHILS PERCENT AUTO 0 % (0-2); EOSINOPHILS PERCENT AUTO 0 % (0-6); Hematocrit 41.7 % (37.0-53.0); Hemoglobin 14.2 g/dL (13.5-17.5); IMMATURE GRAN ABSOLUTE AUTO 0.06 K/mm3 (0.00-0.10); IMMATURE GRAN PERCENT AUTO 1 % (0-1); LYMPHOCYTES PERCENT AUTO 7 % (21-46); MONOCYTES ABSOLUTE AUTO 0.63 K/mm3 (0.16-1.47); MONOCYTES PERCENT AUTO 6 % (4-13); Mean Corpuscular HGB 31.3 pg (26.0-34.0); Mean Corpuscular HGB Conc 34.1 g/dL (31.5-36.5); Mean Corpuscular Volume 92 fL (80-100); Mean Platelet Volume 10.4 fL (9.1-12.4); NEUTROPHILS ABSOLUTE AUTO 10.03 K/mm3 (1.96-9.15); NEUTROPHILS PERCENT AUTO 87 % (41-73); Platelet Count 355 K/mm3 (150-400); RDW Coefficient Variation 13.4 % (11.7-14.2); RDW Standard Deviation 45.8 fL (35.1-46.3); Red Blood Cell Count 4.53 M/mm3 (4.30-5.90); White Blood Cell Count 11.53 K/mm3 (4.00-11.30)
[2021-06-02 04:51] LABS: Alanine Aminotransfer (ALT/SGP 82 U/L (12-78); Albumin, Blood 1.9 g/dL (3.4-5.0); Albumin/Globulin Ratio 0.5 (0.8-1.8); Alk Phos 62 U/L (50-136); Anion Gap 5 mmol/L (6-16); Aspartate Aminotrans (AST/SGOT 98 U/L (12-37); Bilirubin, Total 0.5 mg/dL (0.1-1.0); Blood Urea Nitrogen 23 mg/dL (8-24); Bun/Creatinine Ratio 33.3 (12.0-20.0); CO2, Blood 28 mmol/L (21-32); Calcium, Blood 8.1 mg/dL (8.5-10.1); Chloride, Blood 106 mmol/L (98-108); Creatinine, Blood 0.69 mg/dL (0.60-1.20); Globulin, Blood 3.6 g/dL (2.2-4.0); Glomerular Filtration Rate >60 (60-); Glucose, Blood 107 mg/dL (70-99); Potassium, Blood 3.4 mmol/L (3.5-5.5); Sodium, Blood 139 mmol/L (136-145); Total Protein, Blood 5.5 g/dL (6.4-8.2)
--- NOTE | 2021-06-02 06:12 | NUR ---
PATIENT IS ALERT, FOLLOWS COMMANDS, ABLE TO MAKE NEEDS KNOWN, USES THE YAUKUER TO GET RID OF SECRETIONS, NEEDS ASSISTANCE WITH REMOVING CPAP MASK. PATIENT HAS BEEN ON CPAP ALL NIGHT STARTED AT 90% O2 AND IS NOW AT 80%, SATURATIONS MAINTAIN > 92%. PICC LINE WAS UNABLE TO RETURN BLOOD UPON FLUSHING THIS MORNING FOR LABS, ALL CAPS WERE CHANGE AND ENROLLMENT SERVICES DEAN MADE AWARE. LORENZANA CATHETER IS PATENT, BELOW THE BLADDER, OFF THE FLOOR DRAINING DARK YELLOW URINE, RECTAL TUBE IS PATENT NOTED SOME SLIGHT YELLOW LIQUID IN THE DRAINAGE TUBE NOT IN THE BAG, PATIENT RECEIVED BED BATH AND ALL LINEN CHANGED THIS AM. PATIENT IS ABLE TO TAKE HIS ORAL MEDICATIONS WITH GIVING HIM TINY SIPS OF WATER, OTHERWISE HAS REMAINED NPO THROUGHOUT THE EVENING.
--- NOTE | 2021-06-02 09:19 | NUR ---
ASSUMED CARE OF PATIENT AT APPROX 0700; PT PLACED FROM CPAP TO AIRVO BY DAILY BALBUENA, THIS AM. AIRVO 60L AT 90% FIO2; SPO2 88-92% AT REST; WHEN COUGHING/TALKING/ACTIVITY 80-84%, SLOW RECOVERY. LS DIM T/O. PT A&Ox4; [place]; FORGETFUL AT TIMES. PT BEDREST WITH RECTAL TUBE AND LORENZANA CATHETER IN PLACE AND DRAINING. PT DENIES PAIN, NAUSEA AND DIZZINESS. BLE EDEMA NOTED 1+, ENCOURAGED ELEVATING. VSS. NO OTHER ACUTE CHANGES NOTED. WILL CONTINUE TO MONITOR.
--- NOTE | 2021-06-02 11:15 | NUR ---
Case Conference Note Reviewed chart and discussed case with burial needs salesperson Noreen. Pt requiring significant CPAP support with respiratory status continuing to decline. Pt may need intubated if respiratory status continued to decline. Called and spoke with Pt's spouse Malathi. Provided update and reviewed plan of care. Listened as Malathi reports being diagnosed with COVID-19 on Wednesday at urgent care. It appears as she described treatment she recieved the monoclonal antibiotic treatment. Discussed Pt's condition including the possibility of being intubated. Educated on life sustaining treatments including risk factors of CPR and Intubation. Malathi reports she knows Pt would want to try everything. Continued therapeutic listening and answered questions. Malathi expresses appreciation and reports no other concerns at this time. Palliative Care will remain available.
--- NOTE | 2021-06-02 13:05 | NUR ---
NOTIFIED DR BASS OF POTASSIUM LEVELS. NEW ORDERS FOR KCL 40 MEQ. WILL CONTINUE TO MONITOR.
--- NOTE | 2021-06-02 16:50 | NUR ---
CODE STATUS PT SPOUSE DISCUSSED CODE STATUS WITH PROTECTIVE SERVICES OFFICER, STATES THEY ARE DRN AT [facility]. THIS RN DISCUSSED CODE STATUS WITH PATIENT, HE STATES THAT HE DOES NOT WANT TO BE INTUBATED, BUT WOULD LIKE CPR, MEDCIATION AND DEFIB; NOTIIFED DR BASS, NEW ORDERS PLACED FOR DNI.
--- NOTE | 2021-06-02 16:52 | NUR ---
SHIFT SUMMARY THIS AFTERNOON PT RESTING ON SIDE ON AIRVO 60L FIO2 AT 90%; SPO2 91-94%, CONTINUES TO DESATURATE WITH ACTIVITY/MOVEMENT/COUHGING. PT TITRATED TO 55L AND 85% ON AIRVO; SPO2 89-91% AT REST. RECTAL TUBE AND CATHETER PATENT AND DRAINING. OTHER VSS. NO OTHER ACUTE CHANGES. WILL CONTINUE TO MONITOR.
[2021-06-03 04:02] LABS: BASOPHILS ABSOLUTE AUTO 0.01 K/mm3 (0.00-0.23); BASOPHILS PERCENT AUTO 0 % (0-2); EOSINOPHILS PERCENT AUTO 0 % (0-6); Hematocrit 39.8 % (37.0-53.0); Hemoglobin 13.7 g/dL (13.5-17.5); IMMATURE GRAN ABSOLUTE AUTO 0.09 K/mm3 (0.00-0.10); IMMATURE GRAN PERCENT AUTO 1 % (0-1); LYMPHOCYTES ABSOLUTE AUTO 0.74 K/mm3 (0.84-5.20); LYMPHOCYTES PERCENT AUTO 5 % (21-46); MONOCYTES PERCENT AUTO 5 % (4-13); Mean Corpuscular HGB 31.4 pg (26.0-34.0); Mean Corpuscular HGB Conc 34.4 g/dL (31.5-36.5); Mean Corpuscular Volume 91 fL (80-100); Mean Platelet Volume 10.4 fL (9.1-12.4); NEUTROPHILS ABSOLUTE AUTO 12.65 K/mm3 (1.96-9.15); NEUTROPHILS PERCENT AUTO 89 % (41-73); Platelet Count 368 K/mm3 (150-400); RDW Coefficient Variation 13.1 % (11.7-14.2); RDW Standard Deviation 44.2 fL (35.1-46.3); Red Blood Cell Count 4.37 M/mm3 (4.30-5.90); White Blood Cell Count 14.19 K/mm3 (4.00-11.30)
[2021-06-03 04:20] LABS: Alanine Aminotransfer (ALT/SGP 104 U/L (12-78); Albumin, Blood 1.8 g/dL (3.4-5.0); Albumin/Globulin Ratio 0.5 (0.8-1.8); Alk Phos 65 U/L (50-136); Anion Gap 3 mmol/L (6-16); Aspartate Aminotrans (AST/SGOT 99 U/L (12-37); Bilirubin, Total 0.4 mg/dL (0.1-1.0); Blood Urea Nitrogen 24 mg/dL (8-24); Bun/Creatinine Ratio 34.8 (12.0-20.0); CO2, Blood 30 mmol/L (21-32); Calcium, Blood 6.9 mg/dL (8.5-10.1); Chloride, Blood 108 mmol/L (98-108); Creatinine, Blood 0.69 mg/dL (0.60-1.20); Globulin, Blood 3.4 g/dL (2.2-4.0); Glomerular Filtration Rate >60 (60-); Glucose, Blood 102 mg/dL (70-99); Potassium, Blood 3.7 mmol/L (3.5-5.5); Sodium, Blood 141 mmol/L (136-145); Total Protein, Blood 5.2 g/dL (6.4-8.2)
--- NOTE | 2021-06-03 05:07 | NUR ---
SHIFT SUMMARY- PT. A&O, FORGETFUL AT TIMES. ON AIRVO 55L @92%. DESATS TO THE 70'S-80'S WITH ACTIVITY AND DURING COUGHING SPASMS WITH LONG RECOVERY TIME. PT. ENCOURAGED TO LAY SEMI-PRONE OR PRONE TOLERATED. PT. REMAINED SIDE LYING T/O THE NIGHT WITH SATS MAINTAINED 88-92%. HAD NO COMPLAINTS OF PAIN OR DISCOMFORT DURING THE NIGHT. PT. HAVING LIQUID STOOLS, RECTAL TUBE IN PLACE. DENIES NEEDS AT THIS TIME, RESTING QUIETLY IN BED, NO APPARENT DISTRESS NOTED. CALL LIGHT WITHIN REACH AND SIDE RAILS UPX2. WILL CONT TO MONITOR.
--- NOTE | 2021-06-03 09:59 | NUR ---
ASSUMED CARE OF PATIENT AT APPROX 0700. AT APPROX 0800 PT DESATURATED TO 66%, THIS RN TO ROOM, PT SITTING ON SIDE OF BED. ENCOURAGED BREATHING AND PT SUCTIONED IND. SPO2 SLOWLY IMPROVING, TITRATED FIOT TO 95%. PT REPROTS FEELING ANXIOUS, NOTIFIED DR BASS, NEW ORDERS FOR ATIVAN 0.5MG TO 1MG IV Q4 PRN. ADMINISTERED. PT ALERT, ORIENTED x3, FORGETFUL AT TIMES. PT DENIES PAIN, CHEST PAIN, AND DIZZINESS. PT REPORTS FEELING NAUSEA, MEDICATED PER EMAR. PT CONTINUING TO SIT UP IN BED, ENCOURAGED DEEP BREATHING. PT DESATURATES TO 80'S WITH MOVEMENT/TALKING/COUGHING, RECOVERS SLOWLY. OTHER VSS. NO OTHER ACUTE CHANGES. WILL CONTINUE TO MONITOR.
--- NOTE | 2021-06-03 18:51 | NUR ---
SHIFT SUMMARY PT A&Ox3; FORGETFUL AT TIMES; [place]. PT O2 NEEDS INCREASED THIS AFTERNOON, ON 60L AND 95% ON AIR, WHILE IN [place] THIS EVENING PT O2 SATURATION 84-86%; ENCOURAGED PRONING, PT AGREEABLE TO REST ON SIDE; SPO2 AT 90-94% AT THIS TIME; DR BASS UPDATED. PT DENIES PAIN, CHEST PAIN, AND DIZZINESS T/O SHIFT. PT REPORTS NASUEA THIS AM, MEDICATED PER EMAR. PT ANXIOUS THIS AM, MEDICATED x1 WITH POSITIVE RESULTS. OTHER VSS. NO OTHER ACUTE CHANGES NOTED. WILLCONTINUE TO MONITOR UNTIL REPORT GIVEN TO ONCOMING RN.
[2021-06-04 06:39] LABS: BASOPHILS ABSOLUTE AUTO 0.02 K/mm3 (0.00-0.23); BASOPHILS PERCENT AUTO 0 % (0-2); EOSINOPHILS PERCENT AUTO 0 % (0-6); Hemoglobin 13.1 g/dL (13.5-17.5); IMMATURE GRAN ABSOLUTE AUTO 0.06 K/mm3 (0.00-0.10); IMMATURE GRAN PERCENT AUTO 1 % (0-1); LYMPHOCYTES ABSOLUTE AUTO 0.62 K/mm3 (0.84-5.20); LYMPHOCYTES PERCENT AUTO 5 % (21-46); MONOCYTES ABSOLUTE AUTO 0.77 K/mm3 (0.16-1.47); MONOCYTES PERCENT AUTO 6 % (4-13); Mean Corpuscular HGB Conc 33.6 g/dL (31.5-36.5); Mean Corpuscular Volume 92 fL (80-100); Mean Platelet Volume 10.4 fL (9.1-12.4); NEUTROPHILS ABSOLUTE AUTO 11.41 K/mm3 (1.96-9.15); NEUTROPHILS PERCENT AUTO 89 % (41-73); Platelet Count 345 K/mm3 (150-400); RDW Coefficient Variation 13.2 % (11.7-14.2); RDW Standard Deviation 44.2 fL (35.1-46.3); Red Blood Cell Count 4.23 M/mm3 (4.30-5.90); White Blood Cell Count 12.88 K/mm3 (4.00-11.30)
--- NOTE | 2021-06-04 06:49 | NUR ---
SHIFT SUMMARY PT. A/OX4. ON AIRVO 95% FIO2 AND 63L MAININTAINING 02 ABOVE 89% DID GET SHORT OF BREATH THIS MORNING BUT REFUSED CPAP/BIPAP MACHINE WAS MAINTAING O2 AROUND 85% TO 86% AND PUT ALSO ON NONREBREATHER 15L BY RESPIRATORY THERAPY. PT. MAINTAING 02 STATS ABOVE 90%. PT. WAS REPOSITINED Q2H AND STATED HIS HIPS HURT. WAS GIVEN TYLENOL. DURING THE MORNING CHECK PT. WAS FOUND TO HAVE A BATTERY UNDER HIS L. BUTTOCK. CHARGE NURSE Lisa LORENZANA WAS MADE AWARE. TOOK PICTURE, MEASURED, AND CHARTED APPROPRIATE ACTIONS. DR. HENSON WAS MADE AWARE AND PER TO KEEP PINK DRESSING ON AND CONT. TO REPOSITION. AN ORDER WAS GIVEN FOR ZINC OXIDE TO APPLY TO AREA IF NEEDED FOR DISCOMFORT OR PAIN. DID PUT ZINC OXIDE ON BOTTOM TO AID HEAL AREA. PT. STATED HE WAS COMFORTABLE. DOES HAVE A LORENZANA IN PLACE AND RECTAL TUBE. WILL CONT. TO MONITOR PT. TILL SHIFT CHANGE.
[2021-06-04 06:58] LABS: Alanine Aminotransfer (ALT/SGP 120 U/L (12-78); Albumin, Blood 1.7 g/dL (3.4-5.0); Albumin/Globulin Ratio 0.5 (0.8-1.8); Alk Phos 70 U/L (50-136); Anion Gap 2 mmol/L (6-16); Aspartate Aminotrans (AST/SGOT 78 U/L (12-37); Bilirubin, Total 0.4 mg/dL (0.1-1.0); Blood Urea Nitrogen 24 mg/dL (8-24); Bun/Creatinine Ratio 36.4 (12.0-20.0); CO2, Blood 31 mmol/L (21-32); Calcium, Blood 7.5 mg/dL (8.5-10.1); Chloride, Blood 108 mmol/L (98-108); Creatinine, Blood 0.66 mg/dL (0.60-1.20); Globulin, Blood 3.4 g/dL (2.2-4.0); Glomerular Filtration Rate >60 (60-); Glucose, Blood 118 mg/dL (70-99); Potassium, Blood 3.8 mmol/L (3.5-5.5); Sodium, Blood 141 mmol/L (136-145); Total Protein, Blood 5.1 g/dL (6.4-8.2)
--- NOTE | 2021-06-04 07:30 | NUR ---
PT WITH TWO SMALL WOUNDS NOTED PT LEFT MIDLINE BUTTOCK, SCABBING NOTED TO AREA, AREA AROUND WOUND APPEARS PINK AND DRY, PT WITH RECTAL TUBE IN PLACE FOR EXCESSIVE DIARRHEA THERE IS EXCORIATION NOTED IN INNER FOLDS OF BUTTOCK AND AROUND RECTUM PER PATIENT THIS EXCORIATION IS NOT NEW. THE TWO SMALL WOUNDS NOTED ARE APPROX .3CM EACH, CLOSED, NO DRAINAGE NOTED.
--- NOTE | 2021-06-04 17:14 | NUR ---
PT DESATURATES QUICKLY WITH ANY MOVEMENT ON ARIVO, PT DOES EVENTUALLY AGREE TO ALLOW BIPAP PLACEMENT WHICH HE IS TOELRATING WELL. PT IS A/O X3, HE ASNWERS QUESTIONS APPROPRIATELY BUT IS INTERMITTENTLY AGITATED BUT PLEASANT HE EXPRESSES DISCONTENT WITH HOSPITALIST HE BELIEVES HE WAS LIED TO THAT HE WILL BE D/C WITHIN 2 WEEKS. PT HAS NEEDED FULL ASSISTANCE TO REPOSITIONING. RECTAL TUBE REMAINS IN PLACE ALONG WITH LORENZANA.
--- NOTE | 2021-06-05 05:35 | NUR ---
SHIFT SUMMARY THE PATIENT IS RESTING COMFORTABLLY IN BED. VITALS HAVE BEEN STABLE. RECTAL TUBE AND LORENZANA ARE IN PLACE. PATIENT HAS BEEN BETWEEN THE CPAP AND AIRVO. CPAP 14L AT 100% FIO2 AND THE AIRVO 60L AT 92-94%. SHE HAS BEEN SATURATING IN THE LOW 90S. NO COMPLAINTS DURING THE SHIFT. BED IS IN LOW POSITION. CALL LIGHT IS WITHIN REACH. REPOSITIONED NEEDED. WILL CONTINUE TO MONITOR.
--- NOTE | 2021-06-05 08:55 | NUR ---
UPON ENTERING ROOM WITH LANEY MAR AND DR BASS PT VERY ANXIOUS, RR 38, SPO2 91% ON BIPAP. PT WITH PROLONG EXPIRATIONS, ACCESSORY MUSCLE USE. PT WAS NOT ABLE TO TOELRATE HIGH FLOW O2 FOR PO MEDICATION ADMINISTRATION. PO MEDS WERE HELD FOR RISK OF ASPIRATION. PT BECOMES TIRED TALKING WITH DR BASS AND FALLS ASLEEP. PT WAS TREATED WITH 0.5MG ATIVAN IVP FOR ANXIETY WHICH SEEMS TO CALM HIS ANXIETY, RR DECREASED TO [address] BASS IS AWARE THAT PO MEDS WERE HELD AND AGREES WITH THIS DECISION TO HOLD THEM. PT IV AND SQ MEDICATIONS ARE GIVEN BY LANEY MAR. DR BASS SPOKE WITH , SHE AGREES THAT OPT SHOULD BE TRANSFERED TO [facility] TO BE CLOSER TO HIS SPECIALISTS, AND AGREES THAT PT SHOULD REMAIN A DNI.
--- NOTE | 2021-06-05 18:00 | NUR ---
SHIFT SUMMARY PATIENT IS RESTING IN BED WITH CPAP IN PLACE. CPAP SETTINGS ARE 14L 100% FIO2. PATIENTS PO MEDICATIONS HELD, SEE PREVIOUS NOTE. OXYGEN SATURATION HAS REMAINED ABOVE 89% WHILE PATIENT IS AT REST OR ASLEEP. LORENZANA AND RECTAL TUBE IN PLACE DRAINING TO GRAVITY. NO FURTHER CHANGES TO DISCUSS SINCE PREVIOUS NURSE NOTE.
--- NOTE | 2021-06-06 05:29 | NUR ---
RESPONDED TO ROOM 227 PER REQUEST OF PRIMARY RN. RESPIRATORY IN ROOM. PT WITH TACHYPNEA AND VERY ANXIOUS. STATES HE IS HAVING MILD CHEST PAIN WITH RESPIRATORY EFFORT. ADMINISTERED 1 MG ATIVAN AND 4 MG MORPHINE FOR AIR HUNGER. THIS BEGINS TO CALM PT. MAINTAINING 90-92 PERCENT SATURATIONS. BLOOD PRESSURE WAS HYPERTENSIVE PRIOR TO MEDS. HAS SINCE NORMALIZED. CALL MADE TO DR HENSON WITH UPDATE. ORDERS RECEIVED. REPORT TO PRIMARY NURSE
--- NOTE | 2021-06-06 07:22 | NUR ---
UPON ENTERING ROOM PATIENT ONLY BARELY OPENS EYES TO VERBAL RESPONSE. PATIENT HAS INCREASED WOB WITH ABDOMINAL BREATHING. PATIENT WAS ON CPAP 15 FIO2 100%. SPO2 87%. CHANEGD TO BIPAP 18 10/5 100%. MD BALL MADE AWARE OF CHANGES.
[2021-06-06 07:43] LABS: Magnesium, Blood 2.2 mg/dL (1.6-2.4)
[2021-06-06 07:44] LABS: Anion Gap 6 mmol/L (6-16); Blood Urea Nitrogen 23 mg/dL (8-24); Bun/Creatinine Ratio 33.1 (12.0-20.0); CO2, Blood 27 mmol/L (21-32); Calcium, Blood 8.2 mg/dL (8.5-10.1); Chloride, Blood 109 mmol/L (98-108); Creatinine, Blood 0.69 mg/dL (0.60-1.20); Glomerular Filtration Rate >60 (60-); Glucose, Blood 119 mg/dL (70-99); Potassium, Blood 4.2 mmol/L (3.5-5.5); Sodium, Blood 142 mmol/L (136-145)
--- NOTE | 2021-06-06 07:47 | NUR ---
MORNING CARDIAC CHANGE DR. HENSON WAS NOTIFIED OF 7 BEAT OF V-TACH. PER MD. STAT LABS. DAYSHIFT RN WAS MADE AWARE.
--- NOTE | 2021-06-06 10:15 | NUR ---
UPON ARRIVAL TO PT'S ROOM THIS AM AT 0720 PT NOTED TO HAVE INCREASED ACCESSORY MUSCLE USAGE, HE IS ALERT BUT NOT ALERT HE WAS THE SHIFT PRIOR UPON MY EVENING ASSESSMENT. PT VITALS DO APPEAR STABLE, BUT PT'S PHYSCAL APPEARANCE DOES NOT REFLECT WNL. PT NOTED TO HAVE MOTTLING TO BILAT FEET, THEY ARE COOL WITH FAINT PEDAL PULSES. AT 0945 PT'S SPO2 BEGAN TO ALARM AT 85% THIS RN TO ROOM PT NOTED TO BE VERY ANXIOUS AND AIR HUNGRY, PT WAS IMMEDIATELY REPOSITIONED, ATIVAN AND MORPHINE ADMINISTERED, ADDITIONAL STAFF TO INCLUDE GROUP BURNER MACHINE AND ICU WELL LOGGING OPERATOR MUD ANALYSIS TO ROOM ALONG WITH RT AND ADDITIONAL RN. URGENT CALL WAS PLACED TO DR HOOD WHO CONTACTED FAMILY, FAMILY AGREES THAT PT SHOULD BE PALCED ON COFMORT CARE. COMFORT CARE ORDERS ARE BEING INSTATED NOW
--- NOTE | 2021-06-06 11:28 | NUR ---
BIPAP MASK REMOVED AT 1122 BY RT. PT GIVEN ADDITIONAL ATIVAN AND ROXINOL POST MASK REMOVAL. PT PLACED ON 2 L NASAL CANNULA WITH SPO2 READING 67%
--- NOTE | 2021-06-06 12:45 | NUR ---
Comfort Care Visit Spoke with care team and discussed case. Pt has shown significant decline over night. Dr Gordon has spoken with spouse and plan is for comfort care. Care Team agrees that spouse can be at bedside. Pt pre medicated by Primary RN Chandni and BIPAP D/C by RT. Remained at bedside to assist with family support and comfort. Offered therapetuic listening and answered questions. Comfort achieved and this RN ended visit to allow spouse to have some alone time. Palliative Care will remain available.
--- NOTE | 2021-06-06 13:52 | NUR ---
Spiritual care visit conducted. Shortly after patient's TOD, I visit patient's spouse, Malathi. She is grieving appropriately. I conduct a life review, and provide therapeutic listening, grief support and prayer. Malathi responds well and shows signs of being comforted.
== END 2021-06-06 15:26 | DRG 177 ==
LOC: ER 19:19 → SURS 23:57 → PCU 23:57 → SURS 05-31 01:21
PROVIDERS: Emergency Medicine; Internal Medicine; ADMIT Internal Medicine
PROC: 3E0333Z Introduction of Anti-inflammatory into Peripheral Vein, Percutaneous Approach (ICD-10-PCS; principal; 2021-05-30)
PROC: 8E0ZXY6 Isolation (ICD-10-PCS; 2021-05-30)
PROC: 5A0945A Assistance with Respiratory Ventilation, 24-96 Consecutive Hours, High Flow/Velocity Cannula (ICD-10-PCS; 2021-05-30)
PROC: XW033E5 Introduction of Remdesivir Anti-infective into Peripheral Vein, Percutaneous Approach, New Technology Group 5 (ICD-10-PCS; 2021-05-31)
PROC: 5A09457 Assistance with Respiratory Ventilation, 24-96 Consecutive Hours, Continuous Positive Airway Pressure (ICD-10-PCS; 2021-06-01)
PROC: 02HV33Z Insertion of Infusion Device into Superior Vena Cava, Percutaneous Approach (ICD-10-PCS; 2021-06-01)
DX: U07.1 COVID-19 (principal); J12.82 Pneumonia due to coronavirus disease 2019; J96.01 Acute respiratory failure with hypoxia; I21.4 Non-ST elevation (NSTEMI) myocardial infarction; E87.1 Hypo-osmolality and hyponatremia; D84.9 Immunodeficiency, unspecified; I50.32 Chronic diastolic (congestive) heart failure; Z51.5 Encounter for palliative care; Z66 Do not resuscitate; K21.9 Gastro-esophageal reflux disease without esophagitis; E87.6 Hypokalemia; G70.00 Myasthenia gravis without (acute) exacerbation; N40.0 Benign prostatic hyperplasia without lower urinary tract symptoms; I25.10 Atherosclerotic heart disease of native coronary artery without angina pectoris; F32.9 Major depressive disorder, single episode, unspecified; E78.5 Hyperlipidemia, unspecified; Z88.6 Allergy status to analgesic agent; Z79.899 Other long term (current) drug therapy; Z90.49 Acquired absence of other specified parts of digestive tract; R74.01 Elevation of levels of liver transaminase levels; E66.9 Obesity, unspecified; Z98.890 Other specified postprocedural states; Z95.5 Presence of coronary angioplasty implant and graft; Z68.34 Body mass index [BMI] 34.0-34.9, adult; I11.0 Hypertensive heart disease with heart failure; Z79.82 Long term (current) use of aspirin; Z79.02 Long term (current) use of antithrombotics/antiplatelets
CPT/HCPCS: 36415; 36600; 71045; 80048; 80053; 80076; 82803; 83605; 83735; 83880; 84145; 84484; 85025; 85379; 87040; 87070; 87205; 93005; 93010; 94660; 94762; 96365; 96366; 96375; 99285-25; A9270; C1751; J0456; J0696; J1100; J1630; J1650; J1940; J2060; J2270; J3480; J7050; J7517